=== PATIENT | male | born 1980 | race Caucasian/White ===

== ENCOUNTER → 2022-11-20 | Outpatient (REF) | payer OTHER | LOC: M SFHCDERM 15:56 | PROVIDERS: ATTEND Nurse Practitioner Family | DX: D18.01 Hemangioma of skin and subcutaneous tissue (principal) ==

== ENCOUNTER → 2023-07-02 | Outpatient (REF) | payer OTHER | LOC: M SFHCDERM 13:00 | PROVIDERS: ATTEND Nurse Practitioner Family | DX: C44.309 Unspecified malignant neoplasm of skin of other parts of face (principal) ==

== ENCOUNTER → 2024-07-07 | Outpatient (REF) | payer OTHER | LOC: M SFHCDERM 17:21 | PROVIDERS: ATTEND Nurse Practitioner Family | DX: D18.01 Hemangioma of skin and subcutaneous tissue (principal) ==